=== PATIENT | female | born 1995 | race African-American/Black ===

== ENCOUNTER 2017-02-26 15:44 | Observation (INO) | payer MEDICAID ==
[~2017-02-26] VITALS: Ht 162.6 cm; Wt 58.1 kg
[2017-02-26] MEDS ORDERED: PNV1TABL76 PO (15:58)
[2017-02-26 17:26] LABS: CLARITY URINE CLEAR (CLEAR); COLOR URINE YELLOW (YELLOW); GLUCOSE URINE NEGATIVE (NEGATIVE); KETONES URINE NEGATIVE (NEGATIVE); LEUKOCYTE ESTERASE URINE 2+ (NEGATIVE); NITRITE URINE NEGATIVE (NEGATIVE); OCCULT BLOOD URINE NEGATIVE (NEGATIVE); PH URINE 7.5 (4.5-8.0); PROTEIN URINE NEGATIVE (NEGATIVE); SPECIFIC GRAVITY URINE 1.008 (1.005-1.030); UROBILINOGEN URINE 0.2 E.U./dL (0.2-1.0)
[2017-02-26] MEDS ORDERED: LACTATED RINGERS 1,000 ML IV SCH (17:30)
[2017-02-26] MEDS ORDERED: CITRIC ACID/SODIUM CITRATE SOLN 30ML UDC PO NR (17:30)
[2017-02-26] MEDS: TERBUTALINE SULFATE 1MG/ML VIAL SUBCUT PRN ×2 (18:11→19:01)
[2017-02-26] MEDS ORDERED: CEFAZOLIN 2,000 MG in DEXT 5% WATER 100 ML IV NR (19:00)
== END 2017-02-26 20:00 | disposition home or self-care (01) ==
LOC: L&D 15:44
PROVIDERS: ADMIT Obstetrics & Gynecology; ATTEND Obstetrics & Gynecology
DX: O26.893 Other specified pregnancy related conditions, third trimester (principal); R10.9 Unspecified abdominal pain; N89.8 Other specified noninflammatory disorders of vagina; Z3A.29 29 weeks gestation of pregnancy
CPT/HCPCS: 81001; 96361; 96365; 96372; 99281; G0378; J0690; J3105; J7120; 96360; J7060

== ENCOUNTER 2017-08-17 23:44 | Emergency (ER) | payer MEDICAID, OTHER ==
[~2017-08-17] VITALS: Ht 165.1 cm; Wt 63.0 kg
[~2017-08-17 23:44] MED LIST: PNV1TABL76 PO
[2017-08-18] MEDS ORDERED: KETOROLAC 60MG/2ML VIAL IM ONE (00:45)
[2017-08-18] MEDS ORDERED: HYDROCODONE/ACETAMINOPHEN 10/325MG TABLET PO ONE (00:45)
[2017-08-18] MEDS ORDERED: LIDOCAINE HCL/EPINEPHRINE 1%-EPI 1:100,000 30 ML VIAL INFIL ONE (00:45)
[2017-08-18] MEDS ORDERED: MORPHINE SULFATE 4 MG/ML CPJ (NOT FOR IM USE) IV ONE ×2 (02:13→02:15)
[2017-08-18 02:14] VITALS: BP 113/73
== END 2017-08-18 02:42 | disposition home or self-care (01) ==
LOC: ER 23:44
DX: S93.04XA Dislocation of right ankle joint, initial encounter (principal); X50.1XXA Overexertion from prolonged static or awkward postures, initial encounter; Y93.89 Activity, other specified; Y92.89 Other specified places as the place of occurrence of the external cause; Y99.8 Other external cause status
CPT/HCPCS: 27840; 73590; 73610; 73630; 96372; 96374; 99284; J1885; J2270; Z7610

== ENCOUNTER 2017-08-18 15:18 | Emergency (ER) | payer MEDICAID, OTHER ==
[~2017-08-18] VITALS: Ht 165.1 cm; Wt 63.0 kg
[2017-08-18 15:19] VITALS: BP 133/80
== END 2017-08-18 19:29 | disposition home or self-care (01) ==
LOC: ER 15:46
DX: R20.2 Paresthesia of skin (principal); M25.572 Pain in left ankle and joints of left foot
CPT/HCPCS: 29515; 99283

== ENCOUNTER 2022-10-07 16:43 | Emergency (ER) | payer MEDICAID ==
[~2022-10-07] VITALS: Ht 165.1 cm; Wt 81.8 kg
[2022-10-07] MEDS ORDERED: AMOX-494 MT (19:16)
[2022-10-07] MEDS ORDERED: IBUP-2029 MT (19:16)
[2022-10-07 19:51] VITALS: BP 138/98
== END 2022-10-07 19:53 | disposition home or self-care (01) ==
LOC: ER 16:43
DX: R59.1 Generalized enlarged lymph nodes (principal); Z68.30 Body mass index [BMI] 30.0-30.9, adult
CPT/HCPCS: 99283

== ENCOUNTER 2023-08-30 08:30 | Emergency (ER) | payer MEDICAID ==
[~2023-08-30] VITALS: Ht 165.1 cm; Wt 79.0 kg
[~2023-08-30 08:30] MED LIST changes: +AMOX-494 MT; +IBUP-2029 MT
[2023-08-30 08:39] VITALS: PULSE 94; RESP 17
[2023-08-30 08:47] VITALS: BP 135/92; TEMP 98.9; O2SAT 99
[2023-08-30] MEDS: IBUPROFEN 400MG TABLET PO ONE (09:15)
[2023-08-30] MEDS ORDERED: IBUP-2028 MT (10:16)
== END 2023-08-30 11:17 | disposition home or self-care (01) ==
LOC: ER 08:30
DX: J02.9 Acute pharyngitis, unspecified (principal); E11.9 Type 2 diabetes mellitus without complications
CPT/HCPCS: 82962; 87070; 87430; 99283

== ENCOUNTER 2023-09-09 20:26 | Emergency (ER) | payer MEDICAID, OTHER ==
[~2023-09-09] VITALS: Ht 165.1 cm; Wt 79.0 kg
[~2023-09-09 20:26] MED LIST changes: +IBUP-2028 MT
[2023-09-09 20:41] VITALS: TEMP 98.6; O2SAT 99
[2023-09-09 23:16] LABS: BASOPHILS % 0.7 % (0.0-2.0); EOSINOPHILS % 1.8 % (0.0-5.0); HEMATOCRIT. 38.7 % (36.0-48.0); HEMOGLOBIN. 13.1 g/dL (12.0-16.0); LYMPHOCYTES % 29.9 % (20.0-50.0); MEAN CORPUSCULAR HEMOGLOBIN 30.3 pg (28.0-32.0); MEAN CORPUSCULAR HGB CONC 33.8 g/dL (31.0-37.0); MEAN CORPUSCULAR VOLUME 89.7 fL (81.0-99.0); MEAN PLATELET VOLUME 9.8 fl (7.4-10.4); MONOCYTES % 8.6 % (2.0-8.0); PLATELET 297 x1000/uL (130-400); RED BLOOD CELL COUNT 4.32 mill/uL (4.2-5.4); RED CELL DISTRIBUTION WIDTH 12.5 % (11.6-14.6); WHITE BLOOD COUNT 13.2 x1000/uL (4.5-11.0)
[2023-09-09 23:25] LABS: CARBON DIOXIDE 25 mEq/L (21-32); CHLORIDE 107 mEq/L (98-107); POTASSIUM 3.5 mEq/L (3.5-5.1); SODIUM 139 mEq/L (136-145)
[2023-09-09 23:26] LABS: CALCIUM 10.3 mg/dL (8.7-10.4)
[2023-09-09 23:30] LABS: CREATININE 0.9 mg/dL (0.6-1.0)
[2023-09-09 23:31] LABS: GLUCOSE 142 mg/dL (70-105); UREA NITROGEN BLOOD 12 mg/dL (9-23)
[2023-09-09 23:32] LABS: ALANINE AMINOTRANSFERASE 24 IU/L (10-49); ALBUMIN 4.9 g/dL (3.2-4.8); ASPARTATE AMINOTRANSFERASE 15 IU/L (<34)
[2023-09-09 23:33] LABS: BILIRUBIN DIRECT 0.2 mg/dL (<=3.0); BILIRUBIN TOTAL 0.6 mg/dL (0.1-1.0); PROTEIN TOTAL 7.8 g/dL (6.0-8.3)
[2023-09-10 00:22] LABS: HCG SCREEN NEGATIVE
[2023-09-10 00:56] VITALS: BP 168/97; PULSE 68; RESP 16
== END 2023-09-10 01:02 | disposition home or self-care (01) ==
LOC: ER 20:26
DX: R10.10 Upper abdominal pain, unspecified (principal); E11.9 Type 2 diabetes mellitus without complications
CPT/HCPCS: 36415; 80048; 80076; 84703; 85025; 99283

== ENCOUNTER 2023-11-21 02:01 | Emergency (ER) | payer OTHER ==
[~2023-11-21] VITALS: Ht 165.1 cm; Wt 79.0 kg
[2023-11-21 02:17] VITALS: BP 152/95; PULSE 80; RESP 18; TEMP 98; O2SAT 98
[2023-11-21 02:40] LABS: BASOPHILS % 0.9 % (0.0-2.0); HEMATOCRIT. 40.8 % (36.0-48.0); HEMOGLOBIN. 13.6 g/dL (12.0-16.0); LYMPHOCYTES % 29.6 % (20.0-50.0); MEAN CORPUSCULAR HEMOGLOBIN 29.8 pg (28.0-32.0); MEAN CORPUSCULAR HGB CONC 33.4 g/dL (31.0-37.0); MEAN CORPUSCULAR VOLUME 89.5 fL (81.0-99.0); MEAN PLATELET VOLUME 9.9 fl (7.4-10.4); MONOCYTES % 8.5 % (2.0-8.0); PLATELET 258 x1000/uL (130-400); RED BLOOD CELL COUNT 4.57 mill/uL (4.2-5.4); RED CELL DISTRIBUTION WIDTH 12.8 % (11.6-14.6); WHITE BLOOD COUNT 10.3 x1000/uL (4.5-11.0)
[2023-11-21] MEDS ORDERED: ACETAMINOPHEN 325MG TABLET PO STA (02:40)
[2023-11-21 02:47] LABS: CHLORIDE 107 mEq/L (98-107); POTASSIUM 3.8 mEq/L (3.5-5.1); SODIUM 140 mEq/L (136-145)
[2023-11-21 02:48] LABS: CALCIUM 9.7 mg/dL (8.7-10.4); CARBON DIOXIDE 25 mEq/L (21-32)
[2023-11-21 02:53] LABS: CREATININE 0.7 mg/dL (0.6-1.0); GLUCOSE 152 mg/dL (70-105); UREA NITROGEN BLOOD 13 mg/dL (9-23)
[2023-11-21 02:55] LABS: ALANINE AMINOTRANSFERASE 21 IU/L (10-49); ALBUMIN 4.9 g/dL (3.2-4.8); ASPARTATE AMINOTRANSFERASE 14 IU/L (<34); BILIRUBIN DIRECT 0.2 mg/dL (<=3.0); BILIRUBIN TOTAL 0.5 mg/dL (0.1-1.0); PROTEIN TOTAL 7.6 g/dL (6.0-8.3)
[2023-11-21 04:19] LABS: HCG SCREEN NEGATIVE
== END 2023-11-21 08:15 | disposition home or self-care (01) ==
LOC: ER 02:01
DX: R10.2 Pelvic and perineal pain (principal); E11.9 Type 2 diabetes mellitus without complications
CPT/HCPCS: 36415; 76830; 76856; 80048; 80076; 84703; 85025; 86850; 86900; 99284

== ENCOUNTER 2024-05-06 07:09 | Emergency (ER) | payer OTHER ==
[~2024-05-06] VITALS: Ht 165.1 cm; Wt 77.6 kg
[2024-05-06 07:13] VITALS: O2SAT 100
[2024-05-06 07:15] VITALS: BP 138/92; PULSE 98; RESP 16; TEMP 98.4; O2SAT 98
[2024-05-06] MEDS ORDERED: AMOX250S70 MT (07:47)
[2024-05-06] MEDS ORDERED: ACET-2708 MT (07:47)
[2024-05-06] MEDS: TETANUS, DIPHTHERIA, PERTUSSIS VAC/PF 0.5ML (>10YR OLD) IM ONE (08:06)
== END 2024-05-06 08:14 | disposition home or self-care (01) ==
LOC: ER 07:19
DX: S40.861A Insect bite (nonvenomous) of right upper arm, initial encounter (principal); E11.9 Type 2 diabetes mellitus without complications; I10 Essential (primary) hypertension; X58.XXXA Exposure to other specified factors, initial encounter; Y93.89 Activity, other specified; Y92.89 Other specified places as the place of occurrence of the external cause; Y99.8 Other external cause status
CPT/HCPCS: 90471; 90715; 99283

== ENCOUNTER 2024-05-17 22:13 | Emergency (ER) | payer OTHER ==
[~2024-05-17] VITALS: Ht 166.4 cm; Wt 79.5 kg
[~2024-05-17 22:13] MED LIST changes: +ACET-2708 MT; +AMOX250S70 MT
[2024-05-17 22:52] VITALS: BP 153/103; PULSE 78; RESP 18; TEMP 98.6; O2SAT 99
== END 2024-05-17 23:40 | disposition left against medical advice (07) ==
LOC: ER 22:13
DX: K08.89 Other specified disorders of teeth and supporting structures (principal); E11.9 Type 2 diabetes mellitus without complications; I10 Essential (primary) hypertension; Z53.21 Procedure and treatment not carried out due to patient leaving prior to being seen by health care provider